=== PATIENT | female | born 1975 | race Two or more races ===

== ENCOUNTER 2018-04-09 17:17 | Emergency (ER) | payer OTHER ==
[~2018-04-09] VITALS: Ht 165.1 cm; Wt 87.0 kg
[~2018-04-09 17:17] MED LIST: AMLO-150 PO; GABA-826 PO; HYDR25TA6 PO
[2018-04-09 17:59] LABS: BASOPHILS # (AUTO) 0.02 x10^3/uL (0-0.1); BASOPHILS % (AUTO) 0 % (0-1); EOSINOPHILS # (AUTO) 0.35 x10^3/uL (0-0.4); EOSINOPHILS % (AUTO) 4 % (1-7); LYMPHOCYTES # (AUTO) 2.07 x10^3/uL (1-3.4); LYMPHOCYTES % (AUTO) 25 % (22-44); MD NO; MEAN CORPUSCULAR HEMOGLOBIN 26.7 pg (27.0-34.8); MEAN CORPUSCULAR HGB CONC 33.4 g/dL (32.4-35.8); MEAN CORPUSCULAR VOLUME 80.1 fL (80-100); MEAN PLATELET VOLUME 9.3 fL (7.4-10.4); MONOCYTES # (AUTO) 0.43 x10^3/uL (0.2-0.8); MONOCYTES % (AUTO) 5 % (2-9); NEUTROPHILS % (AUTO) 65 % (42-75); PLATELET COUNT 219 x10^3/uL (130-400); RED BLOOD COUNT 5.34 x10^6/uL (3.82-5.3); RED CELL DISTRIBUTION WIDTH 15.5 % (9.6-15.2)
[2018-04-09 18:05] LABS: ALANINE AMINOTRANSFERASE 73 U/L (12-78); ALBUMIN 4.2 g/dL (3.4-5.0); ANION GAP 5 mmol/L (5-15); CALCIUM 8.7 mg/dL (8.5-10.1); CHLORIDE 106 mmol/L (98-107); CREATININE 0.82 mg/dL (0.55-1.02)
--- NOTE | 2018-04-09 18:06 | NUR ---
PT PRESENTING TO ER FOR PIERSON CAUSING NAUSEA AND HTN STARTING YESTERDAY. INSTRUCTED BY MD PT TOOK DOUBLE DOSE OF AMLODIPINE BUT PRESSURE REMAINS HIGH. CONNECTED TO MONITORING, HTN NOTED. TECH AT BEDSIDE FOR EKG. FAMILY AT BEDSIDE. CALL LIGHT WITHIN REACH. AWAITING MD ASSESSMENT AND FURTHER ORDERS TO REGULATE BP AT THIS TIME
[2018-04-09 18:07] LABS: ALKALINE PHOSPHATASE 88 U/L (45-117); BILIRUBIN,TOTAL 0.4 mg/dL (0.2-1.0); TOTAL PROTEIN 8.4 g/dL (6.4-8.2)
--- NOTE | 2018-04-09 18:44 | NUR ---
MD TO BEDSIDE FOR ASSESSMENT. ADDITIONAL ORDERS RECEIVED.
--- NOTE | 2018-04-09 19:03 | NUR ---
PT AMB TO RESTROOM WITH STEADY GAIT. UA COLLECTED AND SENT TO LAB. AWAITING RESULTS
[2018-04-09 19:04] LABS: MICROSCOPIC NOT IND
[2018-04-09 19:11] LABS: CULTURE INDICATED? NO
--- NOTE | 2018-04-09 19:12 | NUR ---
ALL RESULTS BACK AT THIS TIME, CHART UP FOR RECHECK
[2018-04-09] MEDS ORDERED: KETOROLAC 30 MG/1 ML ONE (19:21)
[2018-04-09] MEDS ORDERED: KETOROLAC 30 MG/1 ML IM ONE (19:30)
--- NOTE | 2018-04-09 19:30 | NUR ---
PT MEDICATED FOR PAIN PER MAR
--- NOTE | 2018-04-09 19:43 | NUR ---
MD TO BEDSIDE TO UPDATE PT AND FAMILY ON POC
[2018-04-09 20:24] VITALS: BP 147/93
== END 2018-04-09 20:26 | disposition home or self-care (01) ==
LOC: ED 20:24
DX: I10 Essential (primary) hypertension (principal); K21.9 Gastro-esophageal reflux disease without esophagitis; R51 Headache
CPT/HCPCS: 36415; 80053; 81003; 85025; 93005; 96372; 99284; J1885